=== PATIENT | female | born 1970 | race Caucasian/White ===

== ENCOUNTER 2017-02-04 14:22 | Emergency (ER) | payer SELFPAY ==
--- NOTE | ~2017-02-04 | ER ---
PATIENT'S NAME: YANNA KHAN [facility] AGE: 46 Y [address] ROOM: [place] [id number] LOCATION: ED ADMIT DATE: 02/04/2017 ER/Outpatient Report DISCHARGE DATE: 02/04/2017 FAMILY PHYSICIAN: Sonido Kinsey MD ATTENDING PHYSICIAN: Jacob Reynolds TIME OF PATIENT ARRIVAL: 1422 hours. TIME OF PATIENT EVALUATION: 1425 hours. CHIEF COMPLAINT: Chest pain. HISTORY OF PRESENT ILLNESS: This is a 46-year-old female, who presents to the ER, who states she has been having some left-sided chest pain off and on for approximately 2 weeks. She states this pain is sharp in nature and waxes and wanes in intensity. She states it does not radiate anywhere. It does not make her feel nauseated. She has had no vomiting. No weakness. No shortness of breath. No diaphoresis. She denies any recent physical activity. No cough. No fever or chills. ALLERGIES: NO KNOWN ALLERGIES. MEDICATIONS: Aleve. PAST MEDICAL HISTORY: Mother has history of heart disease. She has had 3 C-sections, cholecystectomy, and hysterectomy. SOCIAL HISTORY: She smokes 3/4th pack of cigarettes a day for 20 years. She did quit smoking a month ago. Denies any drug or alcohol use. REVIEW OF SYSTEMS: A 10-point review of system was completed and was negative with the exception of those discussed in the HPI. PHYSICAL EXAMINATION: VITAL SIGNS: Weight 103 kg taken, blood pressure is 145/82, pulse 60, respirations 18, temperature 96.9 degrees tympanically, and saturation is 98% PATIENT'S NAME: YANNA KHAN [facility] AGE: 46 Y [address] ROOM: [place] [address] LOCATION: ED ADMIT DATE: 02/04/2017 ER/Outpatient Report DISCHARGE DATE: 02/04/2017 FAMILY PHYSICIAN: Sonido Kinsey MD ATTENDING PHYSICIAN: Jacob Reynolds on room air. Quiana Coma Score is 15. GENERAL: Alert, calm, well-developed female, in no acute distress. HEENT: Head: Normocephalic. Eyes: Pupils are equal and reactive to light. She does display moist mucous membranes. LUNGS: Clear to auscultation bilaterally. No wheeze or crackles. Normal respiratory effort. HEART: Bradycardic. Normal rhythm. No lifts, thrills, or murmurs. ABDOMEN: Soft and nontender. She has good bowel sounds throughout. No masses are palpated. EXTREMITIES: No clubbing or cyanosis. She has full range of motion of all limbs. MUSCULOSKELETAL: She does not have any tenderness with palpation over her chest wall. LABORATORY DATA: CBC: White count is 6.5, hemoglobin is 13.7, platelets 204, and ANC of 3.4. INR is 0.97. CMS is unremarkable. Magnesium is 2.0. CPK is 83, CK-MB is less than 0.5. CPK is 80, CK-MB is less than 0.5. Troponin-I is less than 0.040, troponin-I is repeated again as negative. EKG shows sinus bradycardia. She does have some inverted T-waves in her anterior leads. We did compare this to her previous EKG, and it was noted to be there then as well. Chest x- ray was negative for any infiltrate. IMPRESSION: Intermittent chest pain for 2 weeks. ASSESSMENT AND PLAN: We did start her on IV here in the emergency room, and the patient was given 4 baby aspirin. We did do 2 attempts of nitroglycerin tablets with no change in her pain at all. We then gave her 2 mg of morphine for her pain, which did improve her pain, and she did get 300 mL of fluid while she was here as well. The patient states that she is feeling better. We will dismiss her to home. I did discuss the patient's care with Dr. Reynolds. We would like her to follow up with her primary care physician in the next 1 to 2 days for followup care. The patient and the patient's understand and agree with care. VIANCA EPPERSON PA-C FOR MD JENNIFER OLGUIN/mark /[id number] d: t: 02/08/17 1230, OUTPATIENT REPORT
[2017-02-04 14:54] LABS: BASOPHIL % 0.6 %; HEMATOCRIT 40.4 % (33.0-46.0); HEMOGLOBIN 13.7 g/dL (10.0-15.0); IMMATURE GRANULOCYTE % 0.3 %; LYMPHOCYTE # 2.5 K/uL (0.8-4.0); LYMPHOCYTE % 38.8 %; MCH 30.9 pg (27.0-34.0); MCHC 33.9 gm/dL (32.0-36.5); MONOCYTE # 0.5 K/uL (0.0-1.0); MONOCYTE % 7.1 %; MPV 9.8 fl (9.4-12.4); NEUTROPHIL # (ANC) 3.4 K/uL (1.8-7.8); NEUTROPHIL % 53.2 %; NRBC % 0 /100WBC (0-0.00); PLATELET COUNT 204 K/uL (150-450); RBC 4.44 M/uL (3.50-5.50); RDW-CV 11.9 % (11.9-14.6); WBC 6.5 K/uL (4.0-11.0)
[2017-02-04 15:03] LABS: INR - (THERAPEUTIC) 0.97 (0.92-1.07); PROTIME 10.2 SECONDS (9.8-11.4); PTT 26 SECONDS (25-32)
[2017-02-04 15:14] LABS: ALBUMIN 3.7 gm/dL (3.5-5.0); ALK PHOS 61 IU/L (33-138); ALT 28 IU/L (12-78); ANION GAP 10.1 (10.0-19.0); AST 21 IU/L (10-40); BLOOD UREA NITROGEN 10 mg/dL (6-24); CALCIUM 8.9 mg/dL (8.5-10.5); CHLORIDE 105 mMol/L (96-110); CO2 27 mMol/L (22-32); CPK 83 IU/L (21-215); ESTIMATED GFR (MDRD EQUATION) 60; POTASSIUM 4.1 mMol/L (3.7-5.1); SODIUM 138 mMol/L (135-145); TOTAL BILIRUBIN 0.4 mg/dL (0.0-1.5); TOTAL PROTEIN 7.3 g/dL (6.0-8.4)
[2017-02-04 17:14] LABS: CPK 80 IU/L (21-215)
== END 2017-02-04 17:34 | disposition disaster alternative care site (69) ==
LOC: GMED 14:22
PROVIDERS: Physician Assistant Medical
DX: R07.9 Chest pain, unspecified (principal); F17.210 Nicotine dependence, cigarettes, uncomplicated; Z90.710 Acquired absence of both cervix and uterus; Z90.49 Acquired absence of other specified parts of digestive tract; Z98.890 Other specified postprocedural states
CPT/HCPCS: J2270; J7030